=== PATIENT | male | born 1945 | race Caucasian/White ===

== ENCOUNTER → 2016-10-12 | Outpatient (CLI) | payer MEDICARE, BC | END | disposition home or self-care (01) | LOC: CDC 14:04 | DX: Z01.810 Encounter for preprocedural cardiovascular examination (principal); N20.0 Calculus of kidney | CPT/HCPCS: 93000 ==

== ENCOUNTER 2016-12-10 11:03 | Day surgery (SDC) | payer OTHER, BC ==
[~2016-12-10] VITALS: Ht 172.7 cm; Wt 83.9 kg
[~2016-12-10 11:03] MED LIST: BACTRIM,SEPT1 TABLET PO; FISH OIL 1,0001 EAC7 PO; LOTREL 5/101 CAPSULE PO; PREVACID30 MG PO; PROBIOTIC1 EAC1 PO; TYLENOL EXTRA500 MG PO; WELLBUTRIN XL150 MG PO; ZOCOR40 MG PO; ZOLOFT100 MG PO
[2016-12-10 11:24] VITALS: BP 124/80
[2016-12-10 15:10] VITALS: BP 121/72
[2016-12-10 16:15] VITALS: BP 125/62
[2016-12-10 16:59] VITALS: BP 144/70
== END 2016-12-10 17:15 | disposition home or self-care (01) ==
LOC: SDC 11:03
DX: N13.2 Hydronephrosis with renal and ureteral calculous obstruction (principal); I10 Essential (primary) hypertension; E78.00 Pure hypercholesterolemia, unspecified; Z82.49 Family history of ischemic heart disease and other diseases of the circulatory system; Z87.891 Personal history of nicotine dependence
CPT/HCPCS: 74420; C1876; J0131; J0690; J1100; J1580; J2250; J2405; J3010; J7050

== ENCOUNTER 2017-05-20 21:16 | Observation (INO) | payer OTHER, BC ==
[~2017-05-20] VITALS: Ht 172.7 cm; Wt 80.5 kg
[2017-05-20 22:51] LABS: HEMATOCRIT 40.9 % (38.0-50.0); HEMOGLOBIN 14.4 G/DL (12.5-16.6); MCH 33.3 PG (29.0-34.0); MCHC 35.2 G/DL (30.0-36.0); MCV 94.7 FL (86-99); PLATELET COUNT 122 K/uL (156-360); RBC DIS.WIDTH-CV 12.3 % (11.8-14.6); RBC DIS.WIDTH-SD 43.4 % (39-53); RED BLOOD COUNT 4.32 M/uL (4.00-5.50); WHITE BLOOD COUNT 10.6 K/uL (4.1-10.2)
[2017-05-20 23:02] LABS: ALBUMIN 4.3 g/dL (3.2-4.8); CHLORIDE 104 mEq/L (99-109); POTASSIUM 3.8 mEq/L (3.7-5.4); SODIUM 138 mEq/L (136-147)
[2017-05-20 23:03] LABS: MAGNESIUM 2.3 mg/dL (1.3-2.7)
[2017-05-20 23:04] LABS: GLUCOSE 113 mg/dL (70-99)
[2017-05-20 23:05] LABS: TOTAL PROTEIN 7.5 g/dL (6.4-8.3)
[2017-05-20 23:06] LABS: TOTAL BILIRUBIN 0.5 mg/dL (0.0-1.0)
[2017-05-20 23:08] LABS: ALKALINE PHOSPHATASE 57 IU/L (3-129); CREATININE 1.7 mg/dL (0.6-1.3); GFR ESTIMATE (CALCULATED) 43 mL/min/ (58.99-99999)
[2017-05-20 23:09] LABS: UREA NITROGEN (BUN) 29 mg/dL (9-23)
[2017-05-20 23:10] LABS: AST (GOT) 35 IU/L (2-34)
[2017-05-20 23:11] LABS: ALT (GPT) 36 IU/L (3-49); LIPASE 26 U/L (1.0-51.0)
[2017-05-20 23:13] LABS: TROP-I INTERPRETATION NEGATIVE; TROPONIN-I < 0.01 ng/mL (0.0-0.30)
[2017-05-21] MEDS ORDERED: AMLODIPINE-BEN1 EAC2 PO (00:21)
[2017-05-21] MEDS ORDERED: POTASSIUM CITR15 MEQ PO (00:22)
[2017-05-21] MEDS ORDERED: SIMVASTATIN40 MG PO (00:22)
[2017-05-21] MEDS ORDERED: SERTRALINE HCL100 MG PO (00:22)
[2017-05-21] MEDS ORDERED: BUPROPION XL150 MG PO (00:23)
[2017-05-21] MEDS ORDERED: LANSOPRAZOLE30 MG PO (00:24)
[2017-05-21] MEDS ORDERED: B-COMPLEX-VITA1 EACH PO (00:35)
[2017-05-21] MEDS ORDERED: FIBER350 GM PO (00:52)
[2017-05-21] MEDS ORDERED: [UNRECOGNIZED DRUG - OTHER] (01:01)
[2017-05-21 03:27] LABS: D-DIMER ELISA < 150.00 ng/mLDDU (<230); MAGNESIUM 2.2 mg/dL (1.3-2.7)
[2017-05-21 03:56] VITALS: BP 141/80
[2017-05-21 05:02] LABS: HEMOGLOBIN 12.8 G/DL (12.5-16.6); MCH 33.1 PG (29.0-34.0); MCHC 34.6 G/DL (30.0-36.0); MCV 95.6 FL (86-99); PLATELET COUNT 106 K/uL (156-360); RBC DIS.WIDTH-CV 12.5 % (11.8-14.6); RBC DIS.WIDTH-SD 44.2 % (39-53); RED BLOOD COUNT 3.87 M/uL (4.00-5.50)
[2017-05-21 05:12] LABS: CHLORIDE 105 mEq/L (99-109); POTASSIUM 3.9 mEq/L (3.7-5.4); SODIUM 140 mEq/L (136-147)
[2017-05-21 05:13] LABS: GLUCOSE 86 mg/dL (70-99)
[2017-05-21 05:17] LABS: CREATININE 1.5 mg/dL (0.6-1.3); GFR ESTIMATE (CALCULATED) 49 mL/min/ (58.99-99999)
[2017-05-21 05:18] LABS: UREA NITROGEN (BUN) 27 mg/dL (9-23)
[2017-05-21 05:23] LABS: TROP-I INTERPRETATION NEGATIVE; TROPONIN-I < 0.01 ng/mL (0.0-0.30)
[2017-05-21 05:42] LABS: HDL CHOLESTEROL 31 MG/DL (Desirable>=40); LDL CHOLESTEROL 58 mg/dL (Desirable<100); NON-HDL CHOLESTEROL 87 mg/dL (Desirable<160); TOTAL CHOLESTEROL 118 mg/dL (Desirable<200); TRIGLYCERIDES 144 MG/DL (Normal: <150)
[2017-05-21 08:21] LABS: THYROTROPIN (TSH) 3.9 MIU/L (0.4-5.5)
[2017-05-21 08:40] VITALS: BP 128/78
[2017-05-21 12:14] VITALS: BP 135/79
[2017-05-21 12:44] LABS: TROP-I INTERPRETATION NEGATIVE; TROPONIN-I < 0.01 ng/mL (0.0-0.30)
[2017-05-21] MEDS ORDERED: ELIQUIS5 MG PO (14:46)
[2017-05-21] MEDS ORDERED: DELTASONE20 M1 PO (14:48)
[2017-05-21] MEDS ORDERED: PROVENTIL,2.5 MG/3 M IH (14:49)
[2017-05-21] MEDS ORDERED: AZITHROMYCIN250 MG1 PO (15:30)
[2017-05-21] MEDS ORDERED: VENTOLIN HFA18 GM IH (16:11)
== END 2017-05-21 16:31 | disposition home or self-care (01) ==
LOC: EME 21:16 → 4EAST 05-21 02:26 → EDOF 05-21 02:26 → ENRESERV 05-21 02:29 → 4EAST 05-21 03:33
PROVIDERS: Emergency Medicine; Hospitalist
DX: J20.9 Acute bronchitis, unspecified (principal); I48.0 Paroxysmal atrial fibrillation; I12.9 Hypertensive chronic kidney disease with stage 1 through stage 4 chronic kidney disease, or unspecified chronic kidney disease; N18.9 Chronic kidney disease, unspecified; N17.9 Acute kidney failure, unspecified; E78.5 Hyperlipidemia, unspecified; D69.6 Thrombocytopenia, unspecified; K21.9 Gastro-esophageal reflux disease without esophagitis; F41.9 Anxiety disorder, unspecified; F17.200 Nicotine dependence, unspecified, uncomplicated; Z79.82 Long term (current) use of aspirin; Z79.01 Long term (current) use of anticoagulants; Z87.442 Personal history of urinary calculi
CPT/HCPCS: 71020; 71250; 80048; 80053; 80061; 81003; 82436; 83690; 83735; 83880; 84133; 84300; 84443; 84484; 85027; 85379; 87502; 93005; 94664; 99281; 99285; G0378; J7030; J7512